=== PATIENT | female | born 1990 | race Caucasian/White ===

== ENCOUNTER 2023-02-09 07:35 | Emergency (ER) | payer BC ==
[~2023-02-09] VITALS: Ht 165.1 cm; Wt 63.5 kg
[2023-02-09 07:40] VITALS: BP_SYST 101
[2023-02-09] MEDS ORDERED: CLIN-142 PO (07:42)
[2023-02-09 07:51] VITALS: BP_SYST 101
[2023-02-09] MEDS ORDERED: CLINDAMYCIN HCL 150 MG CAPSULE ONE (08:20)
[2023-02-09] MEDS ORDERED: CLINDAMYCIN HCL 150 MG CAPSULE PO ONE (08:30)
== END 2023-02-09 07:51 | disposition home or self-care (01) ==
LOC: SED 07:35
DX: H00.014 Hordeolum externum left upper eyelid (principal); H02.844 Edema of left upper eyelid; Z79.899 Other long term (current) drug therapy
CPT/HCPCS: 99283

== ENCOUNTER 2023-07-29 06:47 | Emergency (ER) | payer BC ==
[~2023-07-29] VITALS: Ht 165.1 cm; Wt 65.8 kg
[~2023-07-29 06:47] MED LIST: CLIN-142 PO
[2023-07-29 06:55] VITALS: BP_SYST 105; PULSE 81; RESP 20; TEMP 97.1; O2SAT 100
[2023-07-29] MEDS ORDERED: MAG HYDROX/AL HYDROX/SIMETH 30 ML, DICYCLOMINE HCL 20 MG, LIDOCAINE VISCOUS 2% 15ML (PO... PO ONE ×3 (07:30)
[2023-07-29] MEDS ORDERED: KETOROLAC TROMETHAMINE 30 MG VIAL IVP ONE (07:30)
[2023-07-29 07:46] LABS: BASOPHILS % (AUTO) 0.4 % (0.0-2.0); EOSINOPHILS # (AUTO) 0.1 K/uL (0.0-0.4); EOSINOPHILS % (AUTO) 2.1 % (0.0-4.0); HEMATOCRIT 37.2 % (36-48); HEMOGLOBIN 12.4 g/dL (12.0-16.0); LYMPHOCYTES # (AUTO) 1.2 K/uL (1.0-5.5); LYMPHOCYTES % (AUTO) 35.3 % (20.5-51.5); MEAN CORPUSCULAR HEMOGLOBIN 30 pg (27-31); MEAN CORPUSCULAR HGB CONC 33 % (32-36); MEAN CORPUSCULAR VOLUME 89 fL (79.0-98.0); MONOCYTES # (AUTO) 0.5 K/uL (0.0-1.0); MONOCYTES % (AUTO) 15.7 % (1.7-9.3); NEUTROPHILS # (AUTO) 1.5 K/uL (1.8-7.7); NEUTROPHILS % (AUTO) 46.5 % (40.0-70.0); PLATELET COUNT (AUTO) 237 K/uL (130-430); RED BLOOD CELL COUNT(AUTO) 4.18 MIL/uL (4.2-6.2); RED CELL DISTRIBUTION WIDTH 12.4 % (9.0-15.0); WHITE BLOOD COUNT (AUTO) 3.3 K/uL (4.8-10.8)
[2023-07-29 07:58] LABS: CALCIUM 8.8 mg/dL (8.4-11.0); CREATININE 0.79 mg/dL (0.55-1.30); POTASSIUM 4.5 mmol/L (3.5-5.1)
[2023-07-29 08:02] LABS: ALBUMIN 3.4 g/dL (3.4-4.8); TOTAL BILIRUBIN 0.2 mg/dL (0.0-1.0); TOTAL PROTEIN, SERUM 7.4 g/dL (6.4-8.3)
[2023-07-29] MEDS ORDERED: FAMO20TA8 PO (08:44)
[2023-07-29] MEDS ORDERED: TRAM50TA2 PO (08:44)
[2023-07-29 09:39] LABS: BILIRUBIN,URINE NEGATIVE (NEGATIVE); BLOOD, URINE 1+ (NEGATIVE); CLARITY/URINE CLEAR (CLEAR); COLOR,URINE YELLOW (YELLOW); GLUCOSE,URINE NEGATIVE (NEGATIVE); KETONES,URINE NEGATIVE (NEGATIVE); LEUKOCYTE ESTERASE ,URINE NEGATIVE (NEGATIVE); NITRITE, URINE NEGATIVE (NEGATIVE); PROTEIN URINE NEGATIVE (NEGATIVE); UROBILINOGEN,URINE 0.2 (0.2-1.0)
[2023-07-29 10:05] LABS: BACTERIA,URINE None Seen /HPF (None Seen); WBC,URINE 0-3 /HPF (0-3)
== END 2023-07-29 08:51 | disposition home or self-care (01) ==
LOC: SED 06:47
DX: R10.13 Epigastric pain (principal); R11.0 Nausea; Z79.899 Other long term (current) drug therapy
CPT/HCPCS: 99285; 76705; 80053; 81001; 83690; 85025; 36415; 81025; 96372; 81000; J2001; J1885